=== PATIENT | male | born 2000 | race Two or more races ===

== ENCOUNTER 2021-10-25 21:50 | Inpatient (IN) | payer MEDICAID ==
[~2021-10-25] VITALS: Ht 177.8 cm; Wt 74.3 kg
[2021-10-27] MEDS ORDERED: magnesium hydroxide 30ml (MOM) UD suspension PO PRN (12:00)
[2021-10-27] MEDS ORDERED: acetaminophen 325mg tablet PO PRN (12:00)
[2021-10-27] MEDS ORDERED: LORazepam 1 MG tablet PO PRN (12:00)
[2021-10-27] MEDS ORDERED: mag hydrox/Alum hydrox/simeth 30ml oral suspension PO PRN (12:00)
[2021-10-27] MEDS ORDERED: loperamide 2mg capsule PO PRN (12:00)
[2021-10-27 12:37] VITALS: BP 107/66
[2021-10-27] MEDS ORDERED: OLAN15TA20 PO (14:14)
[2021-10-27] MEDS ORDERED: CARB200T8 PO (14:14)
[2021-10-27] MEDS ORDERED: LORA10TA7 PO (14:14)
[2021-10-27] MEDS ORDERED: OLANZapine 5mg rapidly disint. tablet PO PRN (14:30)
[2021-10-27 15:04] LABS: BASOPHILS % (AUTO) 0.8 % (0-1); EOSINOPHILS # (AUTO) 0.2 X10'3 (0-0.9); HEMATOCRIT 41.1 % (42.0-52.0); HEMOGLOBIN 13.5 g/dl (14.0-17.9); LYMPHOCYTES # (AUTO) 1.9 X10'3 (1.1-4.8); LYMPHOCYTES % (AUTO) 31.9 % (21-51); MEAN CORPUSCULAR HEMOGLOBIN 29.1 PG (27.0-31.0); MEAN CORPUSCULAR HGB CONC 32.9 g/dL (33.0-36.5); MEAN CORPUSCULAR VOLUME 88.6 FL (78-98); MEAN PLATELET VOLUME 7.3 FL (7.4-10.4); MONOCYTES # (AUTO) 0.4 X10'3 (0-0.9); NEUTROPHILS # (AUTO) 3.4 X10'3 (1.8-7.7); NEUTROPHILS % (AUTO) 56.3 % (42-75); PLATELET COUNT 313 X10'3 (140-440); RED BLOOD COUNT 4.65 X10'6 (4.70-6.10); WHITE BLOOD COUNT 6.1 X10'3 (4.5-11.0)
--- NOTE | 2021-10-27 17:29 | NUR ---
ADMIT NOTE Pt is a 21 y/o male on a 5150 for GD. He was originally placed at [facility], but then transferred to [facility] in [place] d/t positive covid test, where he has been in isolation since 10/12/21. Pt has a hx of Schizoaffective D/O, Bipolar Type, Mireya, nightmares, substance abuse (LSD). Arrived on the unit at 1200, escorted by patient daytime caregiver and security. Pt was cooperative with admission process. Safety/skin check completed and belongings inventoried. Pt was given Ativan 2 mg PO prior to transport at 0815 this AM, so was somewhat sedated upon admission. Patient presented with rapid speech, disorganized, tangential, flight of ideas, and mood liability. Addendum: 10/27/21 at 1807 by Moira Boyer RN Pt. denies any S/I and scores as a low risk on the [place] Suicide Risk Assessment, this was endorse to ALEX Lopez and Q 15min safety checks were ordered.
[2021-10-27] MEDS: LORazepam 1 MG tablet PO PRN (18:47)
[2021-10-27 20:00] VITALS: BP 119/68
[2021-10-27] MEDS ORDERED: olanzapine 10mg tablet PO SCH (20:00)
[2021-10-27] MEDS ORDERED: traZODone 50mg tablet PO SCH (20:00)
[2021-10-27] MEDS: carBAMazepine 100mg chewable tablet PO SCH (20:17)
--- NOTE | 2021-10-28 02:02 | NUR ---
Nursing Progress Note: Theo Problem: Pt is a 21 y/o male on a 5150 for GD. He was originally placed at [facility], but then transferred to [facility] in [place] d/t positive covid test, where he has been in isolation since 10/12/21. Pt has a hx of Schizoaffective D/O, Bipolar Type, Mireya, nightmares, substance abuse (LSD). Intervention: Medications administered, 1:1 assessment. Entry Analyst continues to promote independence, to provide pt. with a safe and therapeutic environment, clear communication, active listening and positive encouragement, and encouraged to participate in group therapy. Response: Pt observed to be pacing the unit, pt came to this RN and states that he normally takes temazapam at night because he has nightmares. This RN let the pt know he has trazadone, Zyprexa and tegretal ordered he states that trazadone will work for him. Pt woke at 0015 and a second dose of 50MG of trazadone given. Pt also requested a snack and a sandwich was provided. Provider notified and Restoril 15MG ordered for PRN HS with a repeat. Pt denies MH symptoms and states he is done with LSD and that he took it for 2 months straight. Plan: Patient continues to require crisis interruption and stabilization with medication management and monitoring in a safe and therapeutic environment.
[2021-10-28] MEDS ORDERED: OLANZAPINE 5 MG TABLET PO SCH (07:31)
[2021-10-28 08:00] VITALS: BP 99/60
[2021-10-28] MEDS: carBAMazepine 100mg chewable tablet PO SCH ×3 (08:21→20:17)
[2021-10-28 08:32] LABS: HEMOGLOBIN A1C 5.5 % (4.5-6.2)
[2021-10-28 08:37] LABS: CHOL/HDL RATIO 3.3 (0.00-4.99); CHOLESTEROL 145 MG/DL (0-200); HDL CHOLESTEROL 44 MG/DL (35-60); LDL CHOLESTEROL 54 MG/DL (50-100); TRIGLYCERIDES 208 MG/DL (20-135)
--- NOTE | 2021-10-28 15:13 | NUR ---
Nursing Progress Note: Problem: Pt is a 21 y/o male on a 5150 for GD. He was originally placed at [facility], but then transferred to [facility] in [place] d/t positive covid test, where he has been in isolation since 10/12/21. Pt has a hx of Schizoaffective D/O, Bipolar Type, Mireya, nightmares, substance abuse (LSD). Pt. presents with what appear to be grandiose delusions. Interventions : Maintained a safe and supportive environment, ensured contract for safety, provided clear and simple instructions, provided active listening and positive encouragement, and maintained Q 15min safety checks. Response : Received pt. awake and requesting food at the beginning of the shift, he stated, "The meds make me hungry." He was provided with a small snack to hold him over until breakfast. After breakfast, 1:1 was completed at bedside, pt's speech is mumbled and somewhat slurred making him difficult to understand. Pt. reports he woke up eight times last night with nightmares, and this sheet writer encouraged him to endorse this to his psychiatrist, pt. reported understanding. He denies any S/I, H/I, or A/V/LEONARDO and does not appear to be internally preoccupied. Pt. does make what appear to be delusional statements, he states, "All the electrons floating around affect your brain." He then goes onto report that he has a very high IQ which was tested at [employer] and plans to study psychology on his own without attending college. Pt. is withdrawn throughout the day and isolates to his room napping intermittently. He continues to be food focused and requires some redirection regarding scheduled snack times. Plan : Pt. continues to require interruption of current crisis, medication adjustments, and a safe and supportive environment.
[2021-10-28 20:00] VITALS: BP 132/77
[2021-10-28] MEDS: OLANZAPINE 5 MG TABLET PO SCH (20:17)
[2021-10-28] MEDS: temazepam 15mg capsule PO PRN (20:22)
[2021-10-28] MEDS: LORazepam 1 MG tablet PO PRN (20:40)
--- NOTE | 2021-10-29 04:05 | NUR ---
Nursing Note: The patient was admitted for grave disability. He was psychotic and making delusional statements. Intervention: One to one with the patient to assess severity of thought disorder and ability to verbalize a realistic plan for when he leaves the hospital. Assessed for medication side effects. Response: The patient has been up on the unit and was pleasant when approached. He has had minimal socialization with others. When asked about side effects to medications he stated that he felt that the medications were making him feel too sedated and that the doctor was going to make some changes. He stated that he was trying to stay up out of bed so that he can sleep during the night. He denies having auditory or visual hallucinations but at times made odd statements. He was looking out the window and made a statement about watching the night tracers. When asked why he was here he stated that he had abused LSD and "I was uncontrollable" He stated that his mood was okay but was having racing thoughts. His affect was blunted. He appeared clean and well groomed. He stated that he was hoping he would not have to stay beyond the 5150 because he was anxious to return home. He stated that he has his own apartment in [facility] and he has SSI. He denies thoughts to harm himself or others. Plan: Medication adjustments continue and will continue to monitor for side effects. Will continue to assess for severity of thought disorder.
[2021-10-29 08:00] VITALS: BP 129/68
[2021-10-29] MEDS: LORazepam 1 MG tablet PO PRN ×2 (08:40→16:45)
[2021-10-29] MEDS: carBAMazepine 100mg chewable tablet PO SCH ×2 (08:41→20:42)
--- NOTE | 2021-10-29 08:51 | NUR ---
PRNs Administered: Ativan 1mg Interventions Offered: Pt. requested medication for anxiety and pruritus, he was provided with active listening and positive encouragement. Response to Medication: Pt. thanked this telegraphic typewriter mechanic, will continue to monitor closely.
--- NOTE | 2021-10-29 15:16 | NUR ---
Nursing Progress Note: Problem: Pt is a 21 y/o male on a 5150 for GD. He was originally placed at [facility], but then transferred to [facility] in [place] d/t positive covid test, where he has been in isolation since 10/12/21. Pt has a hx of Schizoaffective D/O, Bipolar Type, Mireya, nightmares, substance abuse (LSD). Pt. continues to present with what appear to be grandiose delusions at times. He also reports anxiety. Interventions : Maintained a safe and supportive environment, ensured contract for safety, provided clear and simple instructions, provided active listening and positive encouragement, and maintained Q 15min safety checks. Response : Received pt. awake and pacing in the hallway at the beginning of the shift. He greeted this field underwriter appropriately and requested to shower. Pt. attended breakfast in the Group Room and afterwards remained there. He was observed to be drawing a chemical compound on the white board, pt. stated animatedly, "I'm going to leave it here and see if anyone will finish it!" Later pt. reported anxiety, he speech appeared to be somewhat pressured and pt. reported racing thoughts. He requested PRN Ativan and this was administered with effectiveness. Pt. continues to deny all MH s/s, but makes occasional possible grandiose delusional statements. Pt. states, "I have been studying psychology and chemistry on my own." This field underwriter later spoke with pt's mother per his consent. Pt's mother reports she told him he can return home only if he stays off drugs and continues taking his medications. Pt. is aware of this and plans to do so. Pt. was observed to be more animated and was interacting appropriately with others during the shift. Plan : Per ALEX Lopez, pt. continues to require medication adjustments and a safe and supportive environment.
--- NOTE | 2021-10-29 16:48 | NUR ---
PRNs Administered: Ativan 1mg Interventions Offered: Pt. requested medication for anxiety, he reported racing thoughts and was observed to be pacing. A quiet environment with decreased stimulation was provided. Response to Medication: Pt. thanked this process description writer, will continue to monitor closely.
[2021-10-29 19:26] VITALS: BP 121/67
[2021-10-29] MEDS: OLANZAPINE 5 MG TABLET PO SCH (20:42)
[2021-10-29] MEDS: temazepam 15mg capsule PO PRN ×2 (20:42→21:23)
[2021-10-30] MEDS: LORazepam 1 MG tablet PO PRN ×3 (01:18→20:00)
--- NOTE | 2021-10-30 02:29 | NUR ---
Nursing Progress Note: Problem: Pt is a 21 y/o male on a 5150 for GD. He was originally placed at [facility], but then transferred to [facility] in [place] d/t positive covid test, where he has been in isolation since 10/12/21. Pt has a hx of Schizoaffective D/O, Bipolar Type, Mireya, nightmares, substance abuse (LSD). Pt. continues to present with what appear to be grandiose delusions at times. He also reports anxiety. Interventions : Maintained a safe and supportive environment, ensured contract for safety, provided clear and simple instructions, provided active listening and positive encouragement, and maintained Q 15min safety checks. Response : Pt sleeping at start of shift. Up in group room for snack. Got out his 5150 and pointed out his hold is up tomorrow at noon. Pt is anxious to go home to [place] where he lives with his mom. Per pt he is welcome to return to his Mom's house. Speech rapid a little pressured. Pt has a book of diagrams of the molecular level of various chemical reactions. He says that is what life is made of and that having this book will keep him off drugs. Pt talked about extensive drug use of LSD and other drugs he ordered off the internet. Pt pleasant and cooperative with care. Plan : Per ALEX Lopez, pt. continues to require medication adjustments and a safe and supportive environment.
[2021-10-30 07:35] VITALS: BP 110/59
[2021-10-30] MEDS: carBAMazepine 100mg chewable tablet PO SCH ×2 (08:07→20:00)
--- NOTE | 2021-10-30 15:14 | NUR ---
CM Presenting Issues: per MDT consultation, attending physician is still monitoring treatment protocol and will provide a 5250 so pt can access additional inpatient time. Interventions: Clinician met w/pt and engaged him in pre-dcp activities, per session, pt wants to rt home to his mother's house and states that his mother would be fine w/this, pt provided verbal consent for clinician to contact his mother and engage her in dcp activities. Clinician had t/c w/pt's mother, per t/c pt can rt home to her when he's ready to d/c but she is unable to pick him up from the hospital. Plan: Clinician will engage Chelly Saldivar in dcp activities when appropriate. Lidia Dia LCSW Addendum: 10/30/21 at 1519 by Lidia Dia SS Amended: Links added.
--- NOTE | 2021-10-30 15:53 | NUR ---
Nursing Progress Note: Problem: Psychosis, mood disorder Pt. continues to present with what appear to be grandiose delusions at times. He also reports anxiety. Interventions : Maintained a safe and supportive environment, administered scheduled medications, assessed for adverse effects to medications, provided active listening and positive encouragement, and maintained Q 15min safety checks. Response : Pt in bed at change of shift. Met with RN for 1:1 assessment at the bedside later this AM. He had already contacted his mom and told her he needed a ride home today. Reminded patient that he has not yet been discharged. He then was placed on a 5250 for GD, with a tentative plan for discharge on 11/02, per Dr. Kendall. Pt handled the news well. Discussed the importance of staying on medications and not using hallucinogenics. He stated that his dad was on acid when he was conceived, So I was the seed of (LSD), then I tried it when I was 7, and again at 13. 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 He went on to say that he loves his mom and understands that its important to her for him to stay off drugs. Plan : Continues to require medication adjustments and a safe and supportive environment. Placed on 5250 for GD
[2021-10-30] MEDS: temazepam 15mg capsule PO PRN ×2 (20:00→20:53)
[2021-10-30] MEDS: OLANZAPINE 5 MG TABLET PO SCH (20:00)
[2021-10-30 20:20] VITALS: BP 122/74
--- NOTE | 2021-10-30 23:46 | NUR ---
Nursing Progress Note: Problem: Pt is a 21 y/o male on a 5150 for GD. He was originally placed at [facility], but then transferred to [facility] in [place] d/t positive covid test, where he has been in isolation since 10/12/21. Pt has a hx of Schizoaffective D/O, Bipolar Type, Mireya, nightmares, substance abuse (LSD). Pt. continues to present with what appear to be grandiose delusions at times. He also reports anxiety. Interventions : Maintained a safe and supportive environment, ensured contract for safety, provided clear and simple instructions, provided active listening and positive encouragement, and maintained Q 15min safety checks. Response : Patient was seen in the hallway. he was actually in a good mood, even though he was served a 5250 today. He says he understands that a few more days will only benefit him. He understands that his staying longer in not punitive, but just to make sure he is stable, so his mother can be comfortable with him coming back. He denies all MH symptoms, and none were seen tonight. He made no delusional statements. He was quite friendly and sociable this evening. He seems to be feeling a lot better about himself. He was compliant with medications, and required a second 15mg of Restoril before he fell asleep. Plan : Per ALEX Lopez, pt. continues to require medication adjustments and a safe and supportive environment. Patient will return to his mother in [facility] in a few days.
[2021-10-31] MEDS: LORazepam 1 MG tablet PO PRN ×2 (05:47→12:16)
[2021-10-31] MEDS: carBAMazepine 100mg chewable tablet PO SCH ×2 (07:46→20:10)
[2021-10-31 08:00] VITALS: BP 110/62
--- NOTE | 2021-10-31 15:01 | NUR ---
DCP Presenting Issues: Per consultation w/attending physician, pt will d/c on and needs dcp support. Interventions: Clinician had t/c w/Esvin MACKAY @ [facility] left vm requesting rt t/c to coordinate aftercare plan and transportation. Plan: Clinician will f/u w/[facility] tomorrow morning re dcp. Lidia Dia LCSW Addendum: 10/31/21 at 1510 by Lidia Dia SS Amended: Links added.
--- NOTE | 2021-10-31 17:31 | NUR ---
Nursing Progress Note: Problem: Pt is a 21 y/o male on a 5150 for GD. He was originally placed at [facility], but then transferred to [facility] in [place] d/t positive covid test, where he has been in isolation since 10/12/21. Pt has a hx of Schizoaffective D/O, Bipolar Type, Mireya, nightmares, substance abuse (LSD). Pt. continues to present with what appear to be grandiose delusions at times. He also reports anxiety. Interventions : Maintained a safe and supportive environment, ensured contract for safety, provided clear and simple instructions, provided active listening and positive encouragement, and maintained Q 15min safety checks. Response : Pt was in bed at change of shift. Met with this RN for 1:1 assessment at the bedside this AM. Reports that he is worried about his mothers health, stating that it is due to her missing him and worrying about him that she fainted today and had to leave work. Pt believed that he would be discharged today, but reiterated to pt that Dr. Kendall had told him yesterday that we would tentatively plan for discharge on . He has difficulty understanding, but after meeting again with his mental health social worker, he verbalizes understanding. Pt states that he plans to quit using all drugs, including THC, for his moms sake. Paces the halls throughout the day. He states that he is feeling manic, and continues to try to force himself to nap because of this. Given earplugs due to the noise of construction outside his window and noise on the unit. This afternoon he made multiple comments about there being too much energy on the unit. Plan : Continues to require medication adjustments and a safe and supportive environment. Patient will return to his mother in [place] in a few days.
[2021-10-31] MEDS: acetaminophen 325mg tablet PO PRN (18:53)
[2021-10-31 19:13] VITALS: BP 112/76
[2021-10-31] MEDS: OLANZAPINE 5 MG TABLET PO SCH (20:10)
[2021-10-31] MEDS: temazepam 15mg capsule PO PRN ×2 (20:20→21:01)
[2021-11-01] MEDS: LORazepam 1 MG tablet PO PRN ×3 (02:51→21:01)
--- NOTE | 2021-11-01 04:30 | NUR ---
Nursing Progress Note: Problem: Pt is a 21 y/o male on a 5150 for GD. He was originally placed at [facility], but then transferred to [facility] in [place] d/t positive covid test, where he has been in isolation since 10/12/21. Pt has a hx of Schizoaffective D/O, Bipolar Type, Mireya, nightmares, substance abuse (LSD). Pt. continues to present with what appear to be grandiose delusions at times. He also reports anxiety. Interventions : Maintained a safe and supportive environment, ensured contract for safety, provided clear and simple instructions, provided active listening and positive encouragement, and maintained Q 15min safety checks. Response : Patient was seen in tstaying longer in not punitive, but just to make sure he is stable, so his mother can be comfortable with him coming back. He denies all MH symptoms, and none were seen tonight. He made no delusional statements. He was quite friendly and sociable this evening. He seems to be feeling a lot better about himself. He was compliant with medications, and required a second 15mg of Restoril before he fell asleep. Plan : Per ALEX Lopez, pt. continues to require medication adjustments and a safe and supportive environment. Patient will return to his mother in [facility] in a few days.
--- NOTE | 2021-11-01 04:30 | NUR ---
Nursing Progress Note: Problem: Pt is a 21 y/o male on a 5150 for GD. He was originally placed at [facility], but then transferred to [facility] in [place] d/t positive covid test, where he has been in isolation since 10/12/21. Pt has a hx of Schizoaffective D/O, Bipolar Type, Mireya, nightmares, substance abuse (LSD). Pt. continues to present with what appear to be grandiose delusions at times. He also reports anxiety. Interventions : Maintained a safe and supportive environment, ensured contract for safety, provided clear and simple instructions, provided active listening and positive encouragement, and maintained Q 15min safety checks. Response : Patient was in good spirits and very pleasant. He ambulated back and forth in the hallway showing off his chemistry book and playing games with staff for the first few hours. He then asked for Tylenol d/t "having a headache, which he was given. He attended snack hour. He denies all MH symptoms, and none were seen tonight. He made no delusional statements. He was quite friendly and sociable this evening. He was compliant with medications, and asked for a second dose of Temazepam 15mg, he received it, and fell asleep. He slept until about 3am. He woke up and asked for an Ativan, which he was given. Plan : Per ALEX Lopez, pt. continues to require medication adjustments and a safe and supportive environment. Patient will return to his mother in [facility] in a few days.
[2021-11-01 07:23] VITALS: BP 112/61
[2021-11-01] MEDS: carBAMazepine 100mg chewable tablet PO SCH ×2 (07:42→20:25)
--- NOTE | 2021-11-01 07:44 | NUR ---
DCP Clinician again had t/c w/THOMPSON Mcallister from [facility] @ [phone] in an attempt to coordinate dcp & transportation for pt to rt to [place] & get an appointment to establish outpt care in [facility]. Left vm request rt t/c to coordinate dcp. Lidia Dia DIRECTOR PATIENT Addendum: 11/01/21 at 0746 by Lidia Dia SS Amended: Links added.
[2021-11-01] MEDS: acetaminophen 325mg tablet PO PRN (10:54)
--- NOTE | 2021-11-01 17:11 | NUR ---
Nursing Progress Note: Theo Problem: Patient was admitted for GD. He has a hx of psychotic illness (non-compliant with medication). 2 months daily LSD use and 1-2 week DMT use. He has no third green party support. Originally placed at [facility], but then transferred to [facility] in [place] d/t positive covid test. Pt has a hx of Schizoaffective D/O, Bipolar Type, Mireya, nightmares, substance abuse (LSD). Intervention: Medication given as ordered with no adverse side effects noted. Provided with a safe and therapeutic environment, clear communication, active listening and positive encouragement. Response: Patient is awake in his room at the start of the shift. Cooperative with assessment and medications. Denies any suicidal/ homicidal ideation. Denies any Auditory/ visual hallucinations. Carries a book when walking the unit but is not noted reading it. Patient states he is feeling better today than yesterday when he argued with the practitioner about discharge. He requests Ativan for anxiety which appears effective. PRN Tylenol effective for headache relief. Plan: Patient continues to require crisis interruption and stabilization with medication management and monitoring in a safe and therapeutic environment.
[2021-11-01 19:35] VITALS: BP 118/67
[2021-11-01] MEDS: OLANZAPINE 5 MG TABLET PO SCH (20:25)
[2021-11-01] MEDS: temazepam 15mg capsule PO PRN ×2 (20:25→22:04)
--- NOTE | 2021-11-02 04:29 | NUR ---
Nursing Progress Note: Theo Problem: Patient was admitted for GD. He has a hx of psychotic illness (non-compliant with medication). 2 months daily LSD use and 1-2 week DMT use. He has no third constitution party support. Originally placed at [facility], but then transferred to [facility] in [place] d/t positive covid test. Pt has a hx of Schizoaffective D/O, Bipolar Type, Mireya, nightmares, substance abuse (LSD). Intervention: Medication given as ordered with no adverse side effects noted. Provided with a safe and therapeutic environment, clear communication, active listening and positive encouragement. Response: Patient was observed pacing around unit with other patient at beginning of shift. Patient stated that he talked to doctor about leaving and that he is one of the jazzmine ones because he get to get out. Patient was found socializing with other patient most of the shift. Patient took all night medications including requested prn temazepam. Patient got up 1.5 hour later asking for repeat. Patient slept for 2 hrs before getting up complaining that his roommate scratching was keeping him up. Nurse assisted roommate and patient finally went to bed. Plan: Patient continues to require crisis interruption and stabilization with medication management and monitoring in a safe and therapeutic environment.
[2021-11-02] MEDS: LORazepam 1 MG tablet PO PRN (06:59)
[2021-11-02] MEDS: carBAMazepine 100mg chewable tablet PO SCH (07:54)
[2021-11-02 08:00] VITALS: BP 99/58
[2021-11-02] MEDS: acetaminophen 325mg tablet PO PRN (08:59)
[2021-11-02] MEDS ORDERED: OLAN15TA35 PO (10:35)
[2021-11-02] MEDS ORDERED: CARB100T15 PO (10:35)
[2021-11-02] MEDS ORDERED: TEMA15CA5 PO (10:35)
--- NOTE | 2021-11-02 12:16 | NUR ---
Discharge Note: Paperwork and follow up reviewed with the patient who is agreeable to discharge. Medications are sent to patients pharmacy of choice. No s/sx acute distress. Escorted off the unit by staff with all of his belongings at 11:25 and is picked up by the [facility] hazardous materials driver. Discharged with the following instructions: Follow-Up: Patient has been scheduled/referred to the following providers for post-hospital discharge and aftercare treatment. Psychiatrist: Your post hospital follow-up with [facility] is scheduled for Friday 11/03 or Monday 11/06 at 10:30AM. [facility] [address] [place] [id number] Ph: [phone] Discharge Address: Home [address] [place] [address] Transportation: [facility] Patient given community crisis services information and National suicide hotline handout. Resources for education regarding mental illness: [facility] [address] [place] [address] [email or web address] For urgent mental health crisis needs please contact [facility] 24-hour Crisis Line Ph: Toll-Free Crisis Line Ph: 1- [phone]
== END 2021-11-02 11:35 | disposition home or self-care (01) | DRG 753 ==
LOC: ADULT MH 21:50 → UNDOADMIN 21:50 → ADULT MH 10-27 11:00
PROVIDERS: ADMIT Psychiatry & Neurology Psychiatry; ATTEND Psychiatry & Neurology Psychiatry
DX: F31.13 Bipolar disorder, current episode manic without psychotic features, severe (principal); F10.10 Alcohol abuse, uncomplicated; F23 Brief psychotic disorder; F16.159 Hallucinogen abuse with hallucinogen-induced psychotic disorder, unspecified; F12.10 Cannabis abuse, uncomplicated; F43.10 Post-traumatic stress disorder, unspecified; Z59.00 Homelessness unspecified; Z88.5 Allergy status to narcotic agent; Z88.8 Allergy status to other drugs, medicaments and biological substances
CPT/HCPCS: 36415; 80061; 80156; 83036; 85025; 87081